=== PATIENT | male | born 1990 | race African-American/Black ===

== ENCOUNTER 2018-10-04 10:07 | Inpatient (IN) | payer MEDICAID ==
[~2018-10-04] VITALS: Ht 180.3 cm; Wt 74.2 kg
[2018-10-04] MEDS ORDERED: VITAD1000 PO (10:33)
[2018-10-04] MEDS ORDERED: PALI117D IM (10:33)
[2018-10-04] MEDS ORDERED: ADDE10 PO (10:33)
[2018-10-04] MEDS ORDERED: RISP2 PO (10:33)
[2018-10-04 11:25] LABS: BASOPHILS % (AUTO) 0.8 % (0.0-2.0); EOSINOPHILS % (AUTO) 1.5 % (1.0-6.0); HEMATOCRIT 41.2 % (41-53); HEMOGLOBIN 13.4 g/dL (13.5-17.5); LYMPHOCYTES # (AUTO) 1.7 K/uL (1.0-4.8); MEAN CORPUSCULAR HEMOGLOBIN 30.2 pg (26.0-34.0); MEAN CORPUSCULAR HGB CONC 32.5 G/dL (31.0-37.0); MEAN CORPUSCULAR VOLUME 93 fL (80-100); MONOCYTES # (AUTO) 0.5 K/uL (0.1-1.0); MONOCYTES % (AUTO) 7.9 % (2.0-9.0); NEUTROPHILS # (AUTO) 3.5 K/uL (1.8-7.7); NEUTROPHILS % (AUTO) 59.8 % (40.0-70.0); PLATELET COUNT (AUTO) 315 K/uL (150-450); RED BLOOD CELL COUNT(AUTO) 4.44 MIL/uL (4.50-5.90); RED CELL DISTRIBUTION WIDTH 15.3 % (11.5-14.5)
[2018-10-04 11:30] LABS: AMPHET/METH SCREEN,URINE NEGATIVE (NEGATIVE); BARBITURATE SCREEN, URINE NEGATIVE (NEGATIVE); BENZODIAZEPINES SCREEN,URINE NEGATIVE (NEGATIVE); CANNABINOID SCREEN,URINE NEGATIVE (NEGATIVE); COCAINE SCREEN,URINE NEGATIVE (NEGATIVE); METHADONE SCREEN, URINE NEGATIVE (NEGATIVE); OPIATE SCREEN,URINE NEGATIVE (NEGATIVE)
[2018-10-04 11:31] LABS: PHENCYCLIDINE SCREEN,URINE NEGATIVE (NEGATIVE)
[2018-10-04 11:47] LABS: ALANINE AMINOTRANSFERASE 17 U/L (12-78); ALKALINE PHOSPHATASE 48 U/L (46-116); ANION GAP 5 mmol/L (8-16); ASPARTATE AMINOTRANSFERASE 10 U/L (15-37); BILIRUBIN,TOTAL 0.5 mg/dL (0.1-1.0); CALCIUM, TOTAL 9.7 mg/dL (8.8-10.5); CARBON DIOXIDE 31 mmol/L (22-29); CHLORIDE 102 mmol/L (98-107); CREATININE 0.73 mg/dL (0.60-1.30); GLOMERULAR FILTR. RATE CALC > 60 mL/min (>60); GLUCOSE,RANDOM 99 mg/dL (70-110); POTASSIUM 4.5 mmol/L (3.5-5.1); SODIUM SERUM 138 mmol/L (136-145); TOTAL PROTEIN, SERUM 7.9 g/dL (6.4-8.2); UREA NITROGEN, BLOOD 11 mg/dL (7-18)
[2018-10-04] MEDS ORDERED: HALOPERIDOL 5 MG TABLET PO ONE (13:45)
[2018-10-04] MEDS ORDERED: LORazepam 1 MG TABLET PO ONE (15:45)
[2018-10-04] MEDS: LORazepam 2 MG TABLET PO PRN (15:48)
[2018-10-04 18:32] VITALS: BP 130/82
[2018-10-04] MEDS ORDERED: DOCUSATE SODIUM 100 MG CAPSULE PO PRN (19:00)
[2018-10-04] MEDS ORDERED: MAGNESIUM HYDROXIDE SUSPENSION 30 ML UDCUP PO PRN (19:00)
[2018-10-04] MEDS ORDERED: GuaiFENesin/D-METHORPHAN [SUGAR-FREE] 200-20MG/10 ML SYRUP UDCUP PO PRN (19:00)
[2018-10-04] MEDS ORDERED: CloNIDine HCL 0.1 MG TABLET PO PRN (19:00)
[2018-10-04] MEDS ORDERED: LOPERAMIDE HCL 2 MG CAPSULE PO PRN (19:00)
[2018-10-04] MEDS ORDERED: ALBUTEROL SULFATE HFA 90 MCG/PUFF 8 GM INHALER IH PRN (19:00)
[2018-10-04] MEDS ORDERED: ONDANSETRON HCL 4 MG TABLET PO PRN (19:00)
[2018-10-04] MEDS ORDERED: PETROLATUM,WHITE 28 GM JELLY TP PRN (19:00)
[2018-10-04] MEDS ORDERED: MAG HYDROX/AL HYDROX/SIMETH ES 30 ML SUSPENSION UDCUP PO PRN (19:00)
[2018-10-04] MEDS ORDERED: IBUPROFEN 400 MG TABLET PO PRN (19:00)
[2018-10-04] MEDS ORDERED: NICOTINE 14 MG/24 HOUR PATCH TD PRN (19:00)
[2018-10-04] MEDS ORDERED: ACETAMINOPHEN 325 MG TABLET PO PRN (19:00)
[2018-10-05 06:15] VITALS: BP 118/67
[2018-10-05] MEDS: LORazepam 2 MG TABLET PO PRN (06:18)
[2018-10-05 07:31] LABS: BASOPHILS % (AUTO) 1.4 % (0.0-2.0); EOSINOPHILS % (AUTO) 2.6 % (1.0-6.0); HEMATOCRIT 41.9 % (41-53); HEMOGLOBIN 13.6 g/dL (13.5-17.5); LYMPHOCYTES # (AUTO) 1.5 K/uL (1.0-4.8); LYMPHOCYTES % (AUTO) 38.3 % (22.0-44.0); MEAN CORPUSCULAR HEMOGLOBIN 30.3 pg (26.0-34.0); MEAN CORPUSCULAR HGB CONC 32.4 G/dL (31.0-37.0); MEAN CORPUSCULAR VOLUME 93 fL (80-100); MONOCYTES # (AUTO) 0.5 K/uL (0.1-1.0); MONOCYTES % (AUTO) 11.6 % (2.0-9.0); NEUTROPHILS # (AUTO) 1.8 K/uL (1.8-7.7); NEUTROPHILS % (AUTO) 46.1 % (40.0-70.0); PLATELET COUNT (AUTO) 286 K/uL (150-450); RED BLOOD CELL COUNT(AUTO) 4.49 MIL/uL (4.50-5.90); RED CELL DISTRIBUTION WIDTH 15.3 % (11.5-14.5)
[2018-10-05 07:53] LABS: ALANINE AMINOTRANSFERASE 15 U/L (12-78); ALBUMIN 3.8 g/dL (3.4-5.0); ALKALINE PHOSPHATASE 45 U/L (46-116); ANION GAP 5 mmol/L (8-16); ASPARTATE AMINOTRANSFERASE 12 U/L (15-37); BILIRUBIN,TOTAL 0.5 mg/dL (0.1-1.0); CALCIUM, TOTAL 9.5 mg/dL (8.8-10.5); CARBON DIOXIDE 30 mmol/L (22-29); CHLORIDE 102 mmol/L (98-107); CHOL/HDL RATIO 3.2 (4.2-7.3); CHOLESTEROL 226 mg/dL (131-200); CREATININE 0.75 mg/dL (0.60-1.30); GLOMERULAR FILTR. RATE CALC > 60 mL/min (>60); GLUCOSE,RANDOM 91 mg/dL (70-110); HDL CHOLESTEROL 71 mg/dL (40-60); LDL CHOL (CALC.) 145 mg/dL (0-130); POTASSIUM 4.4 mmol/L (3.5-5.1); SODIUM SERUM 137 mmol/L (136-145); THYROID STIMULATING HORMONE 1.67 uIU/mL (0.36-3.74); TOTAL PROTEIN, SERUM 7.6 g/dL (6.4-8.2); TRIGLYCERIDES 52 mg/dL (15-150); UREA NITROGEN, BLOOD 14 mg/dL (7-18)
[2018-10-05 07:58] LABS: HEMOGLOBIN A1C 5.8 % (4.5-6.2)
[2018-10-05] MEDS: CHOLECALCIFEROL (VIT D3) 1,000 UNITS TABLET PO SCH (08:05)
[2018-10-05 09:45] VITALS: BP 123/82
[2018-10-05 17:08] VITALS: BP 103/60
[2018-10-05] MEDS: RisperiDONE 2 MG TABLET PO SCH (20:10)
[2018-10-06] MEDS: LORazepam 2 MG TABLET PO PRN ×2 (02:53→15:59)
[2018-10-06 02:54] VITALS: BP 106/79
[2018-10-06] MEDS: CHOLECALCIFEROL (VIT D3) 1,000 UNITS TABLET PO SCH (08:13)
[2018-10-06] MEDS: RisperiDONE 2 MG TABLET PO SCH ×2 (08:13→20:44)
[2018-10-06] MEDS: ESCITALOPRAM OXALATE 10 MG TABLET PO SCH (08:15)
[2018-10-06 09:48] VITALS: BP 111/77
[2018-10-06 16:09] VITALS: BP 118/78
[2018-10-07] MEDS: RisperiDONE 2 MG TABLET PO SCH ×2 (08:25→20:12)
[2018-10-07] MEDS: CHOLECALCIFEROL (VIT D3) 1,000 UNITS TABLET PO SCH (08:25)
[2018-10-07] MEDS: ESCITALOPRAM OXALATE 10 MG TABLET PO SCH (08:26)
[2018-10-07 09:59] VITALS: BP 115/72
[2018-10-07] MEDS: LORazepam 2 MG TABLET PO PRN (14:08)
[2018-10-07 16:07] VITALS: BP 90/40
[2018-10-07 20:10] VITALS: BP 108/73
[2018-10-08] MEDS: ZOLPIDEM TARTRATE 10 MG TABLET PO PRN (02:52)
[2018-10-08] MEDS: LORazepam 2 MG TABLET PO PRN (02:52)
[2018-10-08] MEDS: ESCITALOPRAM OXALATE 10 MG TABLET PO SCH (10:20)
[2018-10-08] MEDS: CHOLECALCIFEROL (VIT D3) 1,000 UNITS TABLET PO SCH (10:20)
[2018-10-08] MEDS: RisperiDONE 2 MG TABLET PO SCH ×2 (10:20→20:28)
[2018-10-08 14:37] VITALS: BP 109/65
[2018-10-08 17:00] VITALS: BP 117/56
[2018-10-09 08:20] VITALS: BP 104/68
[2018-10-09] MEDS: ESCITALOPRAM OXALATE 10 MG TABLET PO SCH (08:22)
[2018-10-09] MEDS: CHOLECALCIFEROL (VIT D3) 1,000 UNITS TABLET PO SCH (08:22)
[2018-10-09] MEDS: RisperiDONE 2 MG TABLET PO SCH ×2 (08:22→20:22)
[2018-10-09 16:06] VITALS: BP 95/56
[2018-10-10] MEDS: HALOPERIDOL 5 MG TABLET PO PRN (04:16)
[2018-10-10] MEDS: LORazepam 2 MG TABLET PO PRN (04:16)
[2018-10-10] MEDS: ESCITALOPRAM OXALATE 10 MG TABLET PO SCH (09:21)
[2018-10-10] MEDS: CHOLECALCIFEROL (VIT D3) 1,000 UNITS TABLET PO SCH (09:22)
[2018-10-10] MEDS: RisperiDONE 2 MG TABLET PO SCH ×2 (09:22→20:17)
[2018-10-10 10:14] VITALS: BP 98/58
[2018-10-10 16:47] VITALS: BP 101/60
[2018-10-11 02:02] VITALS: BP 127/74
[2018-10-11] MEDS: LORazepam 2 MG TABLET PO PRN ×2 (02:04→09:47)
[2018-10-11] MEDS: RisperiDONE 2 MG TABLET PO SCH ×2 (08:16→20:55)
[2018-10-11] MEDS: ESCITALOPRAM OXALATE 10 MG TABLET PO SCH (08:16)
[2018-10-11] MEDS: CHOLECALCIFEROL (VIT D3) 1,000 UNITS TABLET PO SCH (08:16)
[2018-10-11 09:00] VITALS: BP 140/80
[2018-10-11 17:00] VITALS: BP 103/64
[2018-10-12] MEDS: ZOLPIDEM TARTRATE 10 MG TABLET PO PRN (02:59)
[2018-10-12] MEDS: LORazepam 2 MG TABLET PO PRN ×2 (02:59→12:45)
[2018-10-12 03:02] VITALS: BP 111/63
[2018-10-12] MEDS: CHOLECALCIFEROL (VIT D3) 1,000 UNITS TABLET PO SCH (08:29)
[2018-10-12] MEDS: RisperiDONE 2 MG TABLET PO SCH ×2 (08:29→20:16)
[2018-10-12] MEDS: ESCITALOPRAM OXALATE 10 MG TABLET PO SCH (08:29)
[2018-10-12 09:00] VITALS: BP 96/53
[2018-10-12 18:16] VITALS: BP 114/72
[2018-10-12] MEDS: BusPIRone HCL 5 MG TABLET PO SCH (20:16)
[2018-10-13] MEDS: ZOLPIDEM TARTRATE 10 MG TABLET PO PRN (01:38)
[2018-10-13] MEDS: LORazepam 2 MG TABLET PO PRN ×2 (01:38→13:36)
[2018-10-13 01:39] VITALS: BP 111/67
[2018-10-13] MEDS: RisperiDONE 2 MG TABLET PO SCH (08:43)
[2018-10-13] MEDS: CHOLECALCIFEROL (VIT D3) 1,000 UNITS TABLET PO SCH (08:43)
[2018-10-13] MEDS: BusPIRone HCL 5 MG TABLET PO SCH ×3 (08:43→17:59)
[2018-10-13] MEDS: ESCITALOPRAM OXALATE 10 MG TABLET PO SCH (08:43)
[2018-10-13 09:13] VITALS: BP 107/74
[2018-10-13] MEDS: HALOPERIDOL 5 MG TABLET PO PRN (13:36)
[2018-10-13] MEDS ORDERED: ESCI10TA PO (14:53)
[2018-10-13] MEDS ORDERED: BUSP5TAB20 PO (14:53)
== END 2018-10-13 18:15 | disposition home or self-care (01) | DRG 753 ==
LOC: EMS 10:09 → 3EX 17:00
DX: F31.5 Bipolar disorder, current episode depressed, severe, with psychotic features (principal); R45.851 Suicidal ideations; D72.819 Decreased white blood cell count, unspecified; E55.9 Vitamin D deficiency, unspecified; E78.5 Hyperlipidemia, unspecified; F43.10 Post-traumatic stress disorder, unspecified; F98.8 Other specified behavioral and emotional disorders with onset usually occurring in childhood and adolescence; F64.9 Gender identity disorder, unspecified; Z79.899 Other long term (current) drug therapy; Z81.8 Family history of other mental and behavioral disorders; Z91.5 Personal history of self-harm; Z88.8 Allergy status to other drugs, medicaments and biological substances
CPT/HCPCS: 83036; 84443; G0378; G0480

== ENCOUNTER 2019-08-22 02:41 | Inpatient (IN) | payer MEDICAID ==
[~2019-08-22] VITALS: Ht 177.8 cm; Wt 82.1 kg
[~2019-08-22 02:41] MED LIST: BUSP5TAB20 PO; CHOL100018 PO; ESCI10TA PO; RISP2 PO
[2019-08-22 03:33] LABS: EOSINOPHILS % (AUTO) 3.6 % (1.0-6.0); HEMATOCRIT 39.5 % (41-53); HEMOGLOBIN 13.2 g/dL (13.5-17.5); LYMPHOCYTES # (AUTO) 2.2 K/uL (1.0-4.8); LYMPHOCYTES % (AUTO) 39.1 % (22.0-44.0); MEAN CORPUSCULAR HEMOGLOBIN 30.4 pg (26.0-34.0); MEAN CORPUSCULAR HGB CONC 33.4 G/dL (31.0-37.0); MEAN CORPUSCULAR VOLUME 91 fL (80-100); MONOCYTES # (AUTO) 0.4 K/uL (0.1-1.0); MONOCYTES % (AUTO) 6.6 % (2.0-9.0); NEUTROPHILS # (AUTO) 2.8 K/uL (1.8-7.7); NEUTROPHILS % (AUTO) 49.7 % (40.0-70.0); PLATELET COUNT (AUTO) 252 K/uL (150-450); RED BLOOD CELL COUNT(AUTO) 4.35 MIL/uL (4.50-5.90); RED CELL DISTRIBUTION WIDTH 15.4 % (11.5-14.5)
[2019-08-22 03:48] LABS: ANION GAP 13 mmol/L (8-16); CALCIUM, TOTAL 9.3 mg/dL (8.8-10.5); CARBON DIOXIDE 24 mmol/L (22-29); CHLORIDE 102 mmol/L (98-107); CREATININE 0.81 mg/dL (0.60-1.30); GLOMERULAR FILTR. RATE CALC > 60 mL/min (>60); GLUCOSE,RANDOM 82 mg/dL (70-110); POTASSIUM 4.2 mmol/L (3.5-5.1); SODIUM SERUM 139 mmol/L (136-145); UREA NITROGEN, BLOOD 9 mg/dL (7-18)
[2019-08-22 03:49] LABS: AMPHET/METH SCREEN,URINE NEGATIVE (NEGATIVE); BARBITURATE SCREEN, URINE NEGATIVE (NEGATIVE); BENZODIAZEPINES SCREEN,URINE POSITIVE (NEGATIVE); CANNABINOID SCREEN,URINE POSITIVE (NEGATIVE); COCAINE SCREEN,URINE NEGATIVE (NEGATIVE); METHADONE SCREEN, URINE NEGATIVE (NEGATIVE); OPIATE SCREEN,URINE NEGATIVE (NEGATIVE)
[2019-08-22 03:51] LABS: ALANINE AMINOTRANSFERASE 17 U/L (12-78); ALBUMIN 4.2 g/dL (3.4-5.0); ALKALINE PHOSPHATASE 44 U/L (46-116); ASPARTATE AMINOTRANSFERASE 15 U/L (15-37); BILIRUBIN,TOTAL 0.3 mg/dL (0.1-1.0); TOTAL PROTEIN, SERUM 8.2 g/dL (6.4-8.2)
[2019-08-22 03:56] LABS: PHENCYCLIDINE SCREEN,URINE NEGATIVE (NEGATIVE)
[2019-08-22 05:09] LABS: ACETAMINOPHEN < 2 mcg/mL (10-30)
[2019-08-22 05:12] LABS: SALICYLATE 2.8 mg/dL (2.8-20.0)
[2019-08-22] MEDS ORDERED: MAGNESIUM HYDROXIDE SUSPENSION 30 ML UDCUP PO PRN (07:45)
[2019-08-22] MEDS ORDERED: NICOTINE 14 MG/24 HOUR PATCH TD PRN (07:45)
[2019-08-22] MEDS ORDERED: ACETAMINOPHEN 325 MG TABLET PO PRN (07:45)
[2019-08-22] MEDS ORDERED: PETROLATUM,WHITE 28 GM JELLY TP PRN (07:45)
[2019-08-22] MEDS ORDERED: ONDANSETRON HCL 4 MG TABLET PO PRN (07:45)
[2019-08-22] MEDS ORDERED: ALBUTEROL SULFATE HFA 90 MCG/PUFF 8 GM INHALER IH PRN (07:45)
[2019-08-22] MEDS ORDERED: MAG HYDROX/AL HYDROX/SIMETH ES 30 ML SUSPENSION UDCUP PO PRN (07:45)
[2019-08-22] MEDS ORDERED: DOCUSATE SODIUM 100 MG CAPSULE PO PRN (07:45)
[2019-08-22] MEDS ORDERED: GuaiFENesin/D-METHORPHAN [SUGAR-FREE] 200-20MG/10 ML SYRUP UDCUP PO PRN (07:45)
[2019-08-22] MEDS ORDERED: IBUPROFEN 400 MG TABLET PO PRN (07:45)
[2019-08-22] MEDS ORDERED: CloNIDine HCL 0.1 MG TABLET PO PRN (07:45)
[2019-08-22] MEDS ORDERED: LOPERAMIDE HCL 2 MG CAPSULE PO PRN (07:45)
[2019-08-22 09:22] VITALS: BP 124/76
[2019-08-22] MEDS ORDERED: RisperiDONE 2 MG TABLET PO SCH (13:30)
[2019-08-22] MEDS ORDERED: ESCITALOPRAM OXALATE 20 MG TABLET PO SCH (13:30)
[2019-08-22] MEDS: BusPIRone HCL 5 MG TABLET PO SCH (16:31)
[2019-08-22 17:21] VITALS: BP 93/51
[2019-08-22] MEDS: PRAZOSIN HCL 1 MG CAPSULE PO SCH (21:38)
[2019-08-23 08:02] LABS: CHOL/HDL RATIO 5.1 (4.2-7.3)
[2019-08-23 08:54] VITALS: BP 111/78
[2019-08-23] MEDS: BusPIRone HCL 5 MG TABLET PO SCH ×3 (09:54→16:40)
[2019-08-23 16:00] VITALS: BP 97/60
[2019-08-23 20:40] VITALS: BP 106/66
[2019-08-23] MEDS: PRAZOSIN HCL 1 MG CAPSULE PO SCH (20:42)
[2019-08-24] MEDS: BusPIRone HCL 5 MG TABLET PO SCH ×3 (08:33→16:18)
[2019-08-24 09:13] VITALS: BP 121/70
[2019-08-24 17:20] VITALS: BP 131/71
[2019-08-24] MEDS: PRAZOSIN HCL 1 MG CAPSULE PO SCH (20:16)
[2019-08-25] MEDS: BusPIRone HCL 5 MG TABLET PO SCH (08:01)
[2019-08-25] MEDS ORDERED: PRAZ1 PO (08:04)
[2019-08-25 09:33] VITALS: BP 98/70
== END 2019-08-25 11:00 | disposition home or self-care (01) | DRG 885 ==
LOC: EMS 02:42 → 3EI 06:00 → UNDOADMIN 07:23 → UNDODISIN 08-25 11:00
PROVIDERS: ADMIT Psychiatry & Neurology Psychiatry; ATTEND Psychiatry & Neurology Psychiatry
DX: F31.30 Bipolar disorder, current episode depressed, mild or moderate severity, unspecified (principal); R45.851 Suicidal ideations; F12.90 Cannabis use, unspecified, uncomplicated; F43.10 Post-traumatic stress disorder, unspecified; F64.9 Gender identity disorder, unspecified; F10.10 Alcohol abuse, uncomplicated; E55.9 Vitamin D deficiency, unspecified; D64.9 Anemia, unspecified; Z91.19 Patient's noncompliance with other medical treatment and regimen; Z91.411 Personal history of adult psychological abuse
CPT/HCPCS: G0480; G0481

== ENCOUNTER 2025-01-21 08:27 | Inpatient (IN) | payer MEDICAID ==
[~2025-01-21] VITALS: Ht 180.3 cm; Wt 96.8 kg
[~2025-01-21 08:27] MED LIST changes: -CHOL100018 PO; -ESCI10TA PO; +PRAZ1 PO; -RISP2 PO
[2025-01-21] MEDS ORDERED: CLON-592 PO (08:45)
[2025-01-21] MEDS ORDERED: ARIP10TA38 PO (08:45)
[2025-01-21] MEDS ORDERED: PROP10TA73 PO (08:45)
[2025-01-21] MEDS ORDERED: DULO20CA23 PO (08:45)
[2025-01-21 09:20] LABS: COVID AG,FIA SOURCE NASAL SWAB
[2025-01-21 09:21] LABS: PLATELET COUNT (AUTO) 341 K/uL (150-450); RED BLOOD CELL COUNT(AUTO) 4.34 MIL/uL (4.00-5.20); RED CELL DISTRIBUTION WIDTH 14.9 % (11.5-14.5); WHITE BLOOD COUNT (AUTO) 6.1 K/uL (4.5-11.0)
[2025-01-21 09:31] LABS: CALCIUM, TOTAL 8.5 mg/dL (8.8-10.5); CREATININE 0.64 mg/dL (0.60-1.30); GLOMERULAR FILTR. RATE CALC > 60 mL/min (>60); GLUCOSE,RANDOM 94 mg/dL (70-110); SODIUM SERUM 137 mmol/L (136-145); UREA NITROGEN, BLOOD 5 mg/dL (7-18)
[2025-01-21 09:36] LABS: ASPARTATE AMINOTRANSFERASE 9 U/L (15-37); TOTAL PROTEIN, SERUM 8.0 g/dL (6.4-8.2)
[2025-01-21 09:44] LABS: APPEARANCE,URINE CLEAR (CLEAR); GLUCOSE, URINE (UA) NEGATIVE (NEGATIVE); LEUKOCYTE ESTERASE ,URINE NEGATIVE (NEGATIVE); NITRATE,URINE NEGATIVE (NEGATIVE); OCCULT BLOOD,URINE NEGATIVE (NEGATIVE); PH,URINE DRUG SCREEN 6.5 (5.0-8.0); SPECIFIC GRAVITIY, URINE 1.003 (1.003-1.030)
[2025-01-21 09:47] LABS: ALCOHOL, BLOOD (SERUM) < 3 mg/dL (0-10)
[2025-01-21 09:50] LABS: AMPHET/METH SCREEN,URINE NEGATIVE (NEGATIVE); BARBITURATE SCREEN, URINE NEGATIVE (NEGATIVE); CANNABINOID SCREEN,URINE POSITIVE (NEGATIVE); COCAINE SCREEN,URINE NEGATIVE (NEGATIVE); METHADONE SCREEN, URINE NEGATIVE (NEGATIVE)
[2025-01-21 09:54] LABS: SARS-COV2 (COVID) ANTIGEN,FIA Negative (Negative)
[2025-01-21 09:56] LABS: ALCOHOL, URINE DRUG SCREEN NEGATIVE (NEGATIVE)
[2025-01-21 11:25] VITALS: O2SAT 100
[2025-01-21 12:35] VITALS: BP 139/81; PULSE 85; RESP 18; TEMP 97.5; O2SAT 0
[2025-01-21] MEDS ORDERED: BACITRACIN 28 GM OINTMENT TP PRN (19:30)
[2025-01-21] MEDS ORDERED: ALBUTEROL SULFATE HFA 90 MCG/PUFF 8 GM INHALER IH PRN (19:30)
[2025-01-21] MEDS ORDERED: MAGNESIUM HYDROXIDE SUSPENSION 30 ML UDCUP PO PRN (19:30)
[2025-01-21] MEDS ORDERED: DOCUSATE SODIUM 100 MG CAPSULE PO PRN (19:30)
[2025-01-21] MEDS ORDERED: MAG HYDROX/ALUMINUM HYD/SIMETH ES 30 ML SUSPENSION UDCUP PO PRN (19:30)
[2025-01-21] MEDS ORDERED: BENZOCAINE/MENTHOL [CEPACOL] LOZENGE PO PRN (19:30)
[2025-01-21] MEDS ORDERED: ONDANSETRON 4 MG TABLET PO PRN (19:30)
[2025-01-21] MEDS ORDERED: PETROLATUM,WHITE 28 GM JELLY TP PRN (19:30)
[2025-01-21] MEDS ORDERED: LOPERAMIDE HCL 2 MG CAPSULE PO PRN (19:30)
[2025-01-21] MEDS ORDERED: OMEPRAZOLE 20 MG CAPSULE PO PRN (19:30)
[2025-01-21 20:00] VITALS: BP 124/84; PULSE 77; RESP 18; TEMP 97.8; O2SAT 99
[2025-01-21] MEDS: PRAZOSIN HCL 1 MG CAPSULE PO SCH (20:45)
[2025-01-22 08:51] VITALS: BP 129/78; PULSE 76; RESP 18; TEMP 97.7; O2SAT 98
[2025-01-22 10:42] VITALS: BP 121/76; PULSE 58; RESP 18
[2025-01-22] MEDS: DULoxetine HCL 60 MG CAPSULE PO SCH (13:13)
[2025-01-22 20:00] VITALS: BP 124/89; PULSE 83; RESP 18; TEMP 97.5; O2SAT 99
[2025-01-22] MEDS: ZOLPIDEM TARTRATE 10 MG TABLET PO PRN (21:01)
[2025-01-23 01:07] LABS: HEPATITIS C AB (EIA) Non Reactive (Non Reactive)
[2025-01-23 08:09] VITALS: BP 131/89; PULSE 93; RESP 17; TEMP 98.1; O2SAT 99
[2025-01-23] MEDS: ACETAMINOPHEN 325 MG TABLET PO PRN (08:09)
[2025-01-23] MEDS: MULTIVITAMINS WITH MINERALS, THERAPEUTIC TABLET PO SCH (08:14)
[2025-01-23 09:09] VITALS: RESP 18
[2025-01-23 14:06] VITALS: RESP 18
[2025-01-23 15:13] VITALS: RESP 16
[2025-01-23 20:13] VITALS: BP 141/87; PULSE 112; RESP 18; TEMP 98.2
[2025-01-23 23:00] VITALS: BP 131/89; PULSE 101; RESP 17; TEMP 97.8
[2025-01-24 06:45] VITALS: BP 131/83; PULSE 58; RESP 17; TEMP 98
[2025-01-24] MEDS: IBUPROFEN 600 MG TABLET PO PRN (06:49)
[2025-01-24 07:49] VITALS: RESP 16
[2025-01-24 09:24] VITALS: BP 128/95; PULSE 94; RESP 18; TEMP 97.9
[2025-01-24] MEDS ORDERED: DULO60CA73 PO (13:49)
[2025-01-24] MEDS ORDERED: ARIP10TA38 PO (13:49)
[2025-01-24] MEDS ORDERED: PRAZ1 PO (13:49)
== END 2025-01-24 16:36 | disposition home or self-care (01) | DRG 761 ==
LOC: EMS 08:27 → 3EI 13:14
PROVIDERS: ADMIT Psychiatry & Neurology Psychiatry; ATTEND Psychiatry & Neurology Psychiatry
PROC: GZHZZZZ Group Psychotherapy (ICD-10-PCS; principal; 2025-01-21)
DX: F25.1 Schizoaffective disorder, depressive type (principal); R45.851 Suicidal ideations; E55.9 Vitamin D deficiency, unspecified; G47.00 Insomnia, unspecified; K59.00 Constipation, unspecified; J45.909 Unspecified asthma, uncomplicated; F10.90 Alcohol use, unspecified, uncomplicated; F43.12 Post-traumatic stress disorder, chronic; F12.10 Cannabis abuse, uncomplicated; F41.0 Panic disorder [episodic paroxysmal anxiety]; Z20.822 Contact with and (suspected) exposure to COVID-19; Y90.0 Blood alcohol level of less than 20 mg/100 ml; Z88.8 Allergy status to other drugs, medicaments and biological substances; Z62.811 Personal history of psychological abuse in childhood; Z62.810 Personal history of physical and sexual abuse in childhood; R41.89 Other symptoms and signs involving cognitive functions and awareness
CPT/HCPCS: 80048; 80076; 80307; 81003; 84703; 85025; 86803; 87340; 93005; 99285; G0480; G0481

== ENCOUNTER 2025-02-10 03:14 | Emergency (ER) | payer MEDICAID ==
[~2025-02-10] VITALS: Ht 177.8 cm; Wt 96.4 kg
[~2025-02-10 03:14] MED LIST changes: +ARIP10TA38 PO; -BUSP5TAB20 PO; +DULO60CA73 PO
[2025-02-10 03:19] VITALS: TEMP 98.1
[2025-02-10] MEDS: IBUPROFEN 600 MG TABLET PO ONE (06:39)
[2025-02-10] MEDS: LIDOCAINE 5% TRANSDERMAL PATCH TD ONE (06:39)
[2025-02-10] MEDS ORDERED: LIDO-57 TP (06:41)
[2025-02-10] MEDS ORDERED: METH-659 PO (06:41)
[2025-02-10] MEDS ORDERED: IBUP-1492 PO (06:41)
[2025-02-10 07:00] VITALS: BP 133/87; PULSE 80; RESP 16; O2SAT 98
== END 2025-02-10 07:33 | disposition home or self-care (01) ==
LOC: EMS 03:16
DX: S16.1XXA Strain of muscle, fascia and tendon at neck level, initial encounter (principal); F20.9 Schizophrenia, unspecified; F31.9 Bipolar disorder, unspecified; Z79.899 Other long term (current) drug therapy; Z88.8 Allergy status to other drugs, medicaments and biological substances; Y04.0XXA Assault by unarmed brawl or fight, initial encounter; Y93.89 Activity, other specified; Y92.89 Other specified places as the place of occurrence of the external cause; Y99.8 Other external cause status
CPT/HCPCS: 99284; Z7502; Z7610